=== PATIENT | female | born 1940 | race Asian ===

== ENCOUNTER 2017-01-20 06:37 | Day surgery (SDC) | payer MEDICARE, MEDICAID ==
[~2017-01-20 06:37] MED LIST: DICLOFENAC SODIUM 0.1% 2.5 ML OPHTHALMIC SOLUTION OD ONE; DICLOFENAC SODIUM 0.1% 2.5 ML OPHTHALMIC SOLUTION ONE; MOXIFLOXACIN HCL 0.5% 3 ML OPHTHALMIC SOLUTION OD ONE; MOXIFLOXACIN HCL 0.5% 3 ML OPHTHALMIC SOLUTION ONE; PHENYLEPHRINE HCL 2.5% 2 ML OPHTHALMIC SOLUTION ONE; RINGERS SOLUTION,LACTATED 500 ML IV ONE; TROPICAMIDE 1% 2 ML OPHTHALMIC SOLUTION ONE
[2017-01-20] MEDS ORDERED: TETRACAINE HCL VISCOUS 0.5% 5 ML OPHTHALMIC SOLUTION OU ONE (06:38)
[2017-01-20] MEDS ORDERED: LIDOCAINE HCL/PF 1% 2 ML VIAL IM ONE (06:38)
[2017-01-20] MEDS ORDERED: POVIDONE-IODINE 10% 15 ML SOLUTION UD TP ONE (06:38)
[2017-01-20] MEDS ORDERED: MIDAZOLAM HCL 2 MG/2 ML VIAL IVP ONE (06:38)
[2017-01-20] MEDS ORDERED: HYALURONATE SOD/CHONDROITIN SOD 0.5 ML VIAL IO ONE (06:38)
[2017-01-20] MEDS ORDERED: HYALURONATE SODIUM 12 MG/ML 0.8 ML SYRINGE IO ONE (06:38)
[2017-01-20] MEDS ORDERED: DEXAMETHASONE SOD PHOS 4 MG/ML VIAL IVP ONE (06:38)
[2017-01-20] MEDS ORDERED: FentaNYL CITRATE-PF 100 MCG/2 ML VIAL IVP ONE (06:38)
[2017-01-20] MEDS ORDERED: METO50 PO (07:03)
[2017-01-20] MEDS ORDERED: METO25 PO (07:03)
[2017-01-20] MEDS ORDERED: AMLO-511 PO (07:03)
[2017-01-20] MEDS ORDERED: ASPI-1182 PO (07:03)
[2017-01-20] MEDS ORDERED: GABA-531 PO (07:03)
[2017-01-20] MEDS ORDERED: METF500T4 PO (07:03)
[2017-01-20] MEDS: TROPICAMIDE 1% 2 ML OPHTHALMIC SOLUTION OD SCH ×2 (07:06→07:12)
[2017-01-20] MEDS: PHENYLEPHRINE HCL 2.5% 2 ML OPHTHALMIC SOLUTION OD SCH ×2 (07:06→07:12)
[2017-01-20 07:17] LABS: GLUCOSE,POINT OF CARE 101 MG/DL (70-110)
== END 2017-01-20 09:40 | disposition home or self-care (01) ==
LOC: SURGERY 06:37
PROVIDERS: ATTEND Specialist
DX: E11.36 Type 2 diabetes mellitus with diabetic cataract (principal); H25.011 Cortical age-related cataract, right eye; I11.9 Hypertensive heart disease without heart failure; I45.10 Unspecified right bundle-branch block; E78.00 Pure hypercholesterolemia, unspecified; Z90.710 Acquired absence of both cervix and uterus; Z88.8 Allergy status to other drugs, medicaments and biological substances
CPT/HCPCS: 66982; 82962; 93005; C1780; J1100; J2250; J3010; J3490 ×2; J7120

== ENCOUNTER 2017-02-24 07:56 | Day surgery (SDC) | payer MEDICARE, MEDICAID ==
[~2017-02-24] VITALS: Ht 144.8 cm; Wt 46.4 kg
[~2017-02-24 07:56] MED LIST changes: +ALEN70TA48 PO; +AMLO-512 PO; +ASPI-1182 PO; -DICLOFENAC SODIUM 0.1% 2.5 ML OPHTHALMIC SOLUTION OD ONE; -DICLOFENAC SODIUM 0.1% 2.5 ML OPHTHALMIC SOLUTION ONE; +GABA-531 PO; +LOSA50TA37 PO; +METF500T4 PO; +METO25 PO; +METO50 PO; -MOXIFLOXACIN HCL 0.5% 3 ML OPHTHALMIC SOLUTION OD ONE; -MOXIFLOXACIN HCL 0.5% 3 ML OPHTHALMIC SOLUTION ONE; -PHENYLEPHRINE HCL 2.5% 2 ML OPHTHALMIC SOLUTION ONE; -RINGERS SOLUTION,LACTATED 500 ML IV ONE; -TROPICAMIDE 1% 2 ML OPHTHALMIC SOLUTION ONE
[2017-02-24] MEDS ORDERED: FentaNYL CITRATE-PF 100 MCG/2 ML VIAL IVP ONE (07:57)
[2017-02-24] MEDS ORDERED: HYALURONATE SODIUM 12 MG/ML 0.8 ML SYRINGE IO ONE (07:57)
[2017-02-24] MEDS ORDERED: POVIDONE-IODINE 10% 15 ML SOLUTION UD TP ONE (07:57)
[2017-02-24] MEDS ORDERED: LIDOCAINE HCL/PF 1% 2 ML VIAL IM ONE (07:57)
[2017-02-24] MEDS ORDERED: DEXAMETHASONE SOD PHOS 4 MG/ML VIAL IVP ONE (07:57)
[2017-02-24] MEDS ORDERED: HYALURONATE SOD/CHONDROITIN SOD 0.5 ML VIAL IO ONE (07:57)
[2017-02-24] MEDS ORDERED: MIDAZOLAM HCL 2 MG/2 ML VIAL IVP ONE (07:57)
[2017-02-24] MEDS ORDERED: TETRACAINE HCL VISCOUS 0.5% 5 ML OPHTHALMIC SOLUTION OS ONE (07:57)
[2017-02-24] MEDS ORDERED: MOXIFLOXACIN HCL 0.5% 3 ML OPHTHALMIC SOLUTION OS ONE (08:00)
[2017-02-24] MEDS ORDERED: RINGERS SOLUTION,LACTATED 500 ML IV ONE ×2 (08:00→08:06)
[2017-02-24] MEDS ORDERED: DICLOFENAC SODIUM 0.1% 2.5 ML OPHTHALMIC SOLUTION OS ONE (08:00)
[2017-02-24] MEDS ORDERED: PHENYLEPHRINE HCL 2.5% 2 ML OPHTHALMIC SOLUTION ONE (08:07)
[2017-02-24] MEDS ORDERED: TROPICAMIDE 1% 2 ML OPHTHALMIC SOLUTION ONE (08:07)
[2017-02-24] MEDS ORDERED: DICLOFENAC SODIUM 0.1% 2.5 ML OPHTHALMIC SOLUTION ONE (08:07)
[2017-02-24] MEDS ORDERED: MOXIFLOXACIN HCL 0.5% 3 ML OPHTHALMIC SOLUTION ONE (08:07)
[2017-02-24] MEDS: TROPICAMIDE 1% 2 ML OPHTHALMIC SOLUTION OS SCH ×2 (08:26→08:31)
[2017-02-24] MEDS: PHENYLEPHRINE HCL 2.5% 2 ML OPHTHALMIC SOLUTION OS SCH ×2 (08:26→08:31)
[2017-02-24 08:32] LABS: GLUCOSE,POINT OF CARE 119 MG/DL (70-110)
== END 2017-02-24 12:00 | disposition home or self-care (01) ==
LOC: SURGERY 07:56
PROVIDERS: ATTEND Specialist
DX: E11.36 Type 2 diabetes mellitus with diabetic cataract (principal); H25.012 Cortical age-related cataract, left eye; I10 Essential (primary) hypertension; E78.00 Pure hypercholesterolemia, unspecified
CPT/HCPCS: 66984; 82962; C1780; J1100; J2250; J3010; J3490 ×2; J7120

== ENCOUNTER 2018-03-24 05:16 | Emergency (ER) | payer MEDICARE, MEDICAID ==
[~2018-03-24] VITALS: Ht 149.9 cm; Wt 72.7 kg
[~2018-03-24 05:16] MED LIST changes: +LOSA50TA25 PO; -LOSA50TA37 PO; +METF-960 PO; -METF500T4 PO
[2018-03-24 05:28] LABS: GLUCOSE,POINT OF CARE 153 MG/DL (70-110)
[2018-03-24] MEDS ORDERED: PRAV20TA4 PO (05:32)
[2018-03-24] MEDS ORDERED: LORA10TA7 PO (05:32)
[2018-03-24] MEDS ORDERED: SODIUM PHOS/SODIUM BIPHOS 133 ML ENEMA PR ONE (06:15)
[2018-03-24 07:01] VITALS: BP 140/80
== END 2018-03-24 07:02 | disposition home or self-care (01) ==
LOC: EMS 05:16
DX: K59.00 Constipation, unspecified (principal); E78.00 Pure hypercholesterolemia, unspecified; I10 Essential (primary) hypertension; E11.9 Type 2 diabetes mellitus without complications; Z90.710 Acquired absence of both cervix and uterus; Z79.84 Long term (current) use of oral hypoglycemic drugs; Z79.82 Long term (current) use of aspirin; Z79.899 Other long term (current) drug therapy; Z88.8 Allergy status to other drugs, medicaments and biological substances

== ENCOUNTER 2024-12-02 18:13 | Inpatient (IN) | payer MEDICARE, MEDICAID ==
[~2024-12-02] VITALS: Ht 147.3 cm; Wt 49.5 kg
[~2024-12-02 18:13] MED LIST changes: -ALEN70TA48 PO; +AMLO-258 PO; -AMLO-512 PO; -ASPI-1182 PO; +ASPI-1444 PO; +BENZ-227 PO; +CHOL10002 PO; +EZET10TA57 PO; -GABA-531 PO; +GUAIFDM PO; +LEVO-72 PO; +LORA10TA7 PO; +LOSA-381 PO; -LOSA50TA25 PO; +METF-1211 PO; -METF-960 PO; +METO-391 PO; -METO25 PO; -METO50 PO; +PRAV-59 PO; +SODI100067 PO
[2024-12-02 18:41] LABS: PLATELET COUNT (AUTO) 187 K/uL (150-450); RED BLOOD CELL COUNT(AUTO) 3.29 MIL/uL (4.00-5.20); RED CELL DISTRIBUTION WIDTH 12.5 % (11.5-14.5); WHITE BLOOD COUNT (AUTO) 8.3 K/uL (4.5-11.0)
[2024-12-02 18:49] LABS: CALCIUM, TOTAL 7.9 mg/dL (8.8-10.5); CREATININE 0.96 mg/dL (0.60-1.30); GLOMERULAR FILTR. RATE CALC 55 mL/min (>60); GLUCOSE,RANDOM 181 mg/dL (70-110); UREA NITROGEN, BLOOD 19 mg/dL (7-18)
[2024-12-02 18:50] LABS: SODIUM SERUM 112 mmol/L (136-145)
[2024-12-02 18:58] LABS: TROPONIN I-HIGH SENSITIVITY 36 ng/L (<51)
[2024-12-02] MEDS ORDERED: 0.9% SODIUM CHLORIDE 10 ML SYRINGE IVP PRN (20:00)
[2024-12-02] MEDS: SODIUM CHLORIDE 0.9% 250 ML IV ONE (20:07)
[2024-12-02] MEDS: FUROSEMIDE 20 MG/2 ML VIAL IVP ONE (20:08)
[2024-12-02] MEDS: CefTRIAXone 1 GM/DEXTROSE 50 ML IV ONE (20:11)
[2024-12-02 20:26] LABS: LACTIC ACID 1.2 mmol/L (0.4-2.0)
[2024-12-02 21:03] LABS: INFLUENZA TYPE A NEGATIVE FOR TYPE A (NEGATIVE); INFLUENZA TYPE B NEGATIVE FOR TYPE B (NEGATIVE)
[2024-12-02 21:14] LABS: % IRON SATURATION 20.6 % (22-44); IRON, SERUM 63.0 mcg/dL (50-175)
[2024-12-02 22:09] LABS: APPEARANCE,URINE CLEAR (CLEAR); GLUCOSE, URINE (UA) NEGATIVE (NEGATIVE); LEUKOCYTE ESTERASE ,URINE NEGATIVE (NEGATIVE); NITRATE,URINE NEGATIVE (NEGATIVE); OCCULT BLOOD,URINE MODERATE (NEGATIVE); SPECIFIC GRAVITIY, URINE 1.010 (1.003-1.030)
[2024-12-02 22:38] LABS: SQUAMOUS EPITHELIAL CELL,UR Rare /LPF (None Seen)
[2024-12-02] MEDS: ACETAMINOPHEN 325 MG TABLET PO PRN (23:04)
[2024-12-02 23:20] VITALS: PULSE 72; RESP 18; O2SAT 97
[2024-12-02] MEDS: SODIUM CHLORIDE 3% 500 ML IV ONE (23:20)
[2024-12-02] MEDS: DOXYCYCLINE HYCLATE 100 MG in DEXTROSE 5%-WATER 100 ML IV SCH (23:20)
[2024-12-02] MEDS: IPRATROPIUM BROMIDE 0.5 MG/2.5 ML NEB SOLUTION NEB ONE (23:21)
[2024-12-02] MEDS: ALBUTEROL SULFATE 2.5 MG/0.5 ML NEB SOLUTION NEB ONE (23:21)
[2024-12-02 23:25] VITALS: PULSE 72; RESP 18; O2SAT 97
[2024-12-02 23:40] VITALS: PULSE 81; RESP 18; O2SAT 99
[2024-12-02 23:53] LABS: CALCIUM, TOTAL 7.9 mg/dL (8.8-10.5); CREATININE 0.85 mg/dL (0.60-1.30); GLOMERULAR FILTR. RATE CALC > 60 mL/min (>60); GLUCOSE,RANDOM 149 mg/dL (70-110); UREA NITROGEN, BLOOD 18 mg/dL (7-18)
[2024-12-02 23:55] LABS: SODIUM SERUM 115 mmol/L (136-145)
[2024-12-03] VITALS (13 sets, daily range): BP systolic 119–140; BP diastolic 45–99; PULSE 73–98; RESP 16–22; TEMP 97.2–98.9; O2SAT 93–100
[2024-12-03] MEDS: BENZONATATE 100 MG CAPSULE PO SCH (00:03)
[2024-12-03] MEDS: HEPARIN SODIUM,PORCINE 5,000 UNITS/ML VIAL SQ SCH (00:04)
[2024-12-03 00:11] LABS: CHOL/HDL RATIO 1.7 (3.9-5.7); LACTATE DEHYDROGENASE 270.0 U/L (81-234); LDL CHOL (CALC.) 36.0 mg/dL (0-130)
[2024-12-03 05:58] LABS: PLATELET COUNT (AUTO) 179 K/uL (150-450); RED BLOOD CELL COUNT(AUTO) 2.84 MIL/uL (4.00-5.20); RED CELL DISTRIBUTION WIDTH 12.9 % (11.5-14.5); WHITE BLOOD COUNT (AUTO) 8.4 K/uL (4.5-11.0)
[2024-12-03 06:02] LABS: CALCIUM, TOTAL 7.5 mg/dL (8.8-10.5); CREATININE 0.78 mg/dL (0.60-1.30); GLOMERULAR FILTR. RATE CALC > 60 mL/min (>60); GLUCOSE,RANDOM 148 mg/dL (70-110); UREA NITROGEN, BLOOD 15 mg/dL (7-18)
[2024-12-03 06:09] LABS: SODIUM SERUM 117 mmol/L (136-145)
[2024-12-03] MEDS ORDERED: 0.9% SODIUM CHLORIDE 10 ML SYRINGE IVP ONE (07:07)
[2024-12-03] MEDS ORDERED: SODIUM CHLORIDE 0.9% 0 ML ONE (07:07)
[2024-12-03] MEDS ORDERED: IOHEXOL 300 MG/ML 100 ML VIAL ONE (07:07)
[2024-12-03] MEDS: POTASSIUM CHLORIDE 20 MEQ ER TABLET PO ONE (07:14)
[2024-12-03] MEDS: EZETIMIBE 10 MG TABLET PO SCH (08:55)
[2024-12-03] MEDS: ASPIRIN 81 MG DR TABLET PO SCH (08:55)
[2024-12-03] MEDS: LORATADINE 10 MG TABLET PO SCH (08:55)
[2024-12-03] MEDS: SODIUM CHLORIDE 1 GM TABLET PO SCH (08:57)
[2024-12-03] MEDS: ONDANSETRON HCL 4 MG/2 ML VIAL IVP PRN (09:19)
[2024-12-03] MEDS ORDERED: POTASSIUM CHL 10 MEQ/WATER 50 ML IV PRN (09:30)
[2024-12-03 11:48] LABS: CALCIUM, TOTAL 7.3 mg/dL (8.8-10.5); CREATININE 0.75 mg/dL (0.60-1.30); GLOMERULAR FILTR. RATE CALC > 60 mL/min (>60); GLUCOSE,RANDOM 144 mg/dL (70-110); UREA NITROGEN, BLOOD 14 mg/dL (7-18)
[2024-12-03] MEDS ORDERED: CALC-26 PO (11:50)
[2024-12-03] MEDS ORDERED: PRAV10TA37 PO (11:50)
[2024-12-03 11:51] LABS: GLUCOMETER DEV NAME(LOC) ICU.S6; GLUCOSE,POINT OF CARE 153 MG/DL (70-110)
[2024-12-03 11:52] LABS: SODIUM SERUM 120 mmol/L (136-145)
[2024-12-03] MEDS: INSULIN LISPRO 100 UNITS/ML SQ PRN (12:20)
[2024-12-03] MEDS: ALBUTEROL SULFATE 2.5 MG/0.5 ML NEB SOLUTION NEB SCH (15:27)
[2024-12-03] MEDS: IPRATROPIUM BROMIDE 0.5 MG/2.5 ML NEB SOLUTION NEB SCH (15:27)
[2024-12-03 17:42] LABS: CALCIUM, TOTAL 7.4 mg/dL (8.8-10.5); CREATININE 0.83 mg/dL (0.60-1.30); GLOMERULAR FILTR. RATE CALC > 60 mL/min (>60); GLUCOSE,RANDOM 112 mg/dL (70-110); UREA NITROGEN, BLOOD 14 mg/dL (7-18)
[2024-12-03 17:44] LABS: SODIUM SERUM 120 mmol/L (136-145)
[2024-12-03] MEDS: PRAVASTATIN SODIUM 40 MG TABLET PO SCH (21:34)
[2024-12-03] MEDS: CefTRIAXone 1 GM/DEXTROSE 50 ML IV SCH (21:34)
[2024-12-03] MEDS ORDERED: SODIUM CHLORIDE 0.9% 250 ML IV ONE (21:41)
[2024-12-03 22:26] LABS: GLUCOMETER DEV NAME(LOC) ICUN.6; GLUCOSE,POINT OF CARE 161 MG/DL (70-110)
[2024-12-04] VITALS (20 sets, daily range): BP systolic 110–154; BP diastolic 43–99; PULSE 68–115; RESP 17–28; TEMP 97.6–98.6; O2SAT 93–100
[2024-12-04] MEDS: SODIUM CHLORIDE 3% 500 ML IV SCH (01:00)
[2024-12-04 05:40] LABS: PLATELET COUNT (AUTO) 208 K/uL (150-450); RED BLOOD CELL COUNT(AUTO) 2.44 MIL/uL (4.00-5.20); RED CELL DISTRIBUTION WIDTH 12.8 % (11.5-14.5); WHITE BLOOD COUNT (AUTO) 10.2 K/uL (4.5-11.0)
[2024-12-04 05:47] LABS: ASPARTATE AMINOTRANSFERASE 45 U/L (15-37); CALCIUM, TOTAL 7.2 mg/dL (8.8-10.5); CREATININE 0.71 mg/dL (0.60-1.30); GLOMERULAR FILTR. RATE CALC > 60 mL/min (>60); GLUCOSE,RANDOM 91 mg/dL (70-110); PHOSPHORUS 2.4 mg/dL (2.5-4.9); TOTAL PROTEIN, SERUM 5.7 g/dL (6.4-8.2); UREA NITROGEN, BLOOD 12 mg/dL (7-18)
[2024-12-04 05:50] LABS: SODIUM SERUM 123 mmol/L (136-145)
[2024-12-04] MEDS ORDERED: BENZONATATE 100 MG CAPSULE PO PRN (06:30)
[2024-12-04] MEDS: POTASSIUM CHLORIDE 10% 40 MEQ/30 ML LIQUID UDCUP PO ONE (07:56)
[2024-12-04] MEDS: BISACODYL 5 MG EC TABLET PO ONE (07:56)
[2024-12-04] MEDS: SENNOSIDES 8.8 MG/5 ML SYRUP UDCUP PO ONE (07:57)
[2024-12-04] MEDS: PANTOPRAZOLE SODIUM 40 MG/VIAL IVP SCH (07:58)
[2024-12-04 08:47] LABS: % IRON SATURATION 12.9 % (22-44); IRON, SERUM 30.0 mcg/dL (50-175)
[2024-12-04] MEDS: GuaiFENesin/D-METHORPHAN [SUGAR-FREE] 200-20MG/10 ML SYRUP UDCUP PO PRN (09:06)
[2024-12-04 10:06] LABS: GLUCOMETER DEV NAME(LOC) ICUN.6; GLUCOSE,POINT OF CARE 115 MG/DL (70-110)
[2024-12-04 11:41] LABS: CALCIUM, TOTAL 7.8 mg/dL (8.8-10.5); CREATININE 0.80 mg/dL (0.60-1.30); GLOMERULAR FILTR. RATE CALC > 60 mL/min (>60); GLUCOSE,RANDOM 204 mg/dL (70-110); UREA NITROGEN, BLOOD 11 mg/dL (7-18)
[2024-12-04 11:46] LABS: SODIUM SERUM 118 mmol/L (136-145)
[2024-12-04] MEDS: SODIUM PHOS,M-BASIC-D-BASIC 30 MMOL in DEXTROSE 5%-WATER 250 ML IV ONE (12:25)
[2024-12-04 16:48] LABS: CALCIUM, TOTAL 7.2 mg/dL (8.8-10.5); CREATININE 0.81 mg/dL (0.60-1.30); GLOMERULAR FILTR. RATE CALC > 60 mL/min (>60); GLUCOSE,RANDOM 255 mg/dL (70-110); UREA NITROGEN, BLOOD 12 mg/dL (7-18)
[2024-12-04 16:49] LABS: SODIUM SERUM 120 mmol/L (136-145)
[2024-12-04] MEDS: HEPARIN SODIUM,PORCINE 5,000 UNITS/ML VIAL SQ SCH (20:04)
[2024-12-04 20:26] LABS: GLUCOMETER DEV NAME(LOC) ICUN.6; GLUCOSE,POINT OF CARE 276 MG/DL (70-110)
[2024-12-04 21:32] LABS: CALCIUM, TOTAL 7.2 mg/dL (8.8-10.5); CREATININE 0.85 mg/dL (0.60-1.30); GLOMERULAR FILTR. RATE CALC > 60 mL/min (>60); GLUCOSE,RANDOM 210 mg/dL (70-110); UREA NITROGEN, BLOOD 12 mg/dL (7-18)
[2024-12-04 21:35] LABS: SODIUM SERUM 119 mmol/L (136-145)
[2024-12-05] VITALS (23 sets, daily range): BP systolic 124–162; BP diastolic 53–113; PULSE 89–117; RESP 15–26; TEMP 97.1–98.9; O2SAT 92–99
[2024-12-05] MEDS: PIPERACILLIN/TAZO 3.375 GM/D5W 50 ML IV SCH (01:31)
[2024-12-05 06:29] LABS: CALCIUM, TOTAL 7.7 mg/dL (8.8-10.5); CREATININE 0.88 mg/dL (0.60-1.30); GLOMERULAR FILTR. RATE CALC > 60 mL/min (>60); GLUCOSE,RANDOM 161 mg/dL (70-110); UREA NITROGEN, BLOOD 13 mg/dL (7-18)
[2024-12-05 06:31] LABS: SODIUM SERUM 124 mmol/L (136-145)
[2024-12-05 06:34] LABS: PHOSPHORUS 2.5 mg/dL (2.5-4.9)
[2024-12-05 06:41] LABS: PLATELET COUNT (AUTO) 249 K/uL (150-450); RED BLOOD CELL COUNT(AUTO) 2.23 MIL/uL (4.00-5.20); RED CELL DISTRIBUTION WIDTH 13.0 % (11.5-14.5); WHITE BLOOD COUNT (AUTO) 13.1 K/uL (4.5-11.0)
[2024-12-05 08:18] LABS: BAND NEUTROPHILS % (MANUAL) 1 % (0-5); LYMPHOCYTES % (MANUAL) 9 % (22-44); METAMYELOCYTES % 6 % (0-0); MONOCYTES % (MANUAL) 4 % (2-9); SEGMENTED NEUTROPHILS % 80 % (40-70)
[2024-12-05 08:20] LABS: GLUCOMETER DEV NAME(LOC) ICUN.6; GLUCOSE,POINT OF CARE 232 MG/DL (70-110)
[2024-12-05 08:20] LABS: RBC MORPHOLOGY COMMENT NORMAL RBC MORPH
[2024-12-05 08:41] LABS: GLUCOMETER DEV NAME(LOC) ICU.S7; GLUCOSE,POINT OF CARE 168 MG/DL (70-110)
[2024-12-05] MEDS: LACTULOSE 20 GM/30 ML SOLUTION UDCUP PO ONE (08:58)
[2024-12-05] MEDS: POLYETHYLENE GLYCOL 3350 17 GM PACKET PO ONE (08:58)
[2024-12-05] MEDS: SODIUM CHLORIDE 1 GM TABLET PO SCH (08:59)
[2024-12-05] MEDS: MAGNESIUM HYDROXIDE SUSPENSION 30 ML UDCUP PO ONE (08:59)
[2024-12-05] MEDS: INSULIN GLARGINE,HUM.REC.ANLOG 100 UNITS/ML SQ SCH (09:05)
[2024-12-05] MEDS ORDERED: SODIUM CHLORIDE 0.9% 100 ML ONE (09:36)
[2024-12-05] MEDS ORDERED: IOHEXOL 350 MG/ML 100 ML VIAL ONE (09:36)
[2024-12-05] MEDS ORDERED: SODIUM CHLORIDE 0.9% 1,000 ML ONE (10:40)
[2024-12-05 16:20] LABS: GLUCOMETER DEV NAME(LOC) ICUN.6; GLUCOSE,POINT OF CARE 195 MG/DL (70-110)
[2024-12-05 18:50] LABS: INFLUENZA A-RTPCR,COMBO NEGATIVE (NEGATIVE); INFLUENZA B-RTPCR,COMBO NEGATIVE (NEGATIVE); RESPIRATORY SYNCYTIAL VRS-PCR NEGATIVE (NEGATIVE); SARS COVID19 RTPCR, COMBO NEGATIVE (NEGATIVE)
[2024-12-05 19:41] LABS: GLUCOMETER DEV NAME(LOC) ICU.S7; GLUCOSE,POINT OF CARE 156 MG/DL (70-110)
[2024-12-05] MEDS ORDERED: SODIUM CHLORIDE 0.9% 250 ML IV ONE ×2 (20:07→23:42)
[2024-12-05] MEDS: PANTOPRAZOLE SODIUM 40 MG/VIAL IVP ONE (21:58)
[2024-12-05] MEDS: PANTOPRAZOLE SODIUM 80 MG in SODIUM CHLORIDE 0.9% 100 ML IV SCH (22:09)
[2024-12-05 23:31] LABS: GLUCOMETER DEV NAME(LOC) ICU.S7; GLUCOSE,POINT OF CARE 102 MG/DL (70-110)
[2024-12-06] VITALS (19 sets, daily range): BP systolic 124–158; BP diastolic 55–77; PULSE 80–117; RESP 16–24; TEMP 97.5–98.2; O2SAT 93–100
[2024-12-06 06:42] LABS: PLATELET COUNT (AUTO) 277 K/uL (150-450); RED BLOOD CELL COUNT(AUTO) 2.82 MIL/uL (4.00-5.20); RED CELL DISTRIBUTION WIDTH 13.3 % (11.5-14.5); WHITE BLOOD COUNT (AUTO) 11.8 K/uL (4.5-11.0)
[2024-12-06 06:59] LABS: ASPARTATE AMINOTRANSFERASE 34 U/L (15-37); CALCIUM, TOTAL 7.6 mg/dL (8.8-10.5); CREATININE 0.82 mg/dL (0.60-1.30); GLOMERULAR FILTR. RATE CALC > 60 mL/min (>60); GLUCOSE,RANDOM 117 mg/dL (70-110); SODIUM SERUM 131 mmol/L (136-145); TOTAL PROTEIN, SERUM 5.9 g/dL (6.4-8.2); UREA NITROGEN, BLOOD 12 mg/dL (7-18)
[2024-12-06 08:04] LABS: BAND NEUTROPHILS % (MANUAL) 2 % (0-5); LYMPHOCYTES % (MANUAL) 9 % (22-44); MONOCYTES % (MANUAL) 7 % (2-9); NUCLEATED RED BLOOD CELLS 2.0 % (0.0-0.0); RBC MORPHOLOGY COMMENT NORMAL RBC MORPH; SEGMENTED NEUTROPHILS % 82 % (40-70)
[2024-12-06] MEDS: POTASSIUM CHLORIDE 20 MEQ ER TABLET PO PRN (08:45)
[2024-12-06] MEDS ORDERED: FUROSEMIDE 20 MG/2 ML VIAL IVP SCH (14:15)
[2024-12-06] MEDS: DOXYCYCLINE HYCLATE 100 MG TABLET PO SCH (14:25)
[2024-12-07] VITALS (18 sets, daily range): BP systolic 127–154; BP diastolic 51–101; PULSE 95–112; RESP 17–20; TEMP 97.3–98.6; O2SAT 95–100
[2024-12-07 05:55] LABS: GLUCOMETER DEV NAME(LOC) 5S.1D; GLUCOSE,POINT OF CARE 149 MG/DL (70-110)
[2024-12-07 05:56] LABS: GLUCOMETER DEV NAME(LOC) 5S.1D; GLUCOSE,POINT OF CARE 125 MG/DL (70-110)
[2024-12-07 05:56] LABS: GLUCOMETER DEV NAME(LOC) 5S.1D; GLUCOSE,POINT OF CARE 111 MG/DL (70-110)
[2024-12-07 06:06] LABS: GLUCOMETER DEV NAME(LOC) 5S.2D; GLUCOSE,POINT OF CARE 136 MG/DL (70-110)
[2024-12-07 06:06] LABS: GLUCOMETER DEV NAME(LOC) 5S.2D; GLUCOSE,POINT OF CARE 109 MG/DL (70-110)
[2024-12-07 06:56] LABS: PLATELET COUNT (AUTO) 320 K/uL (150-450); RED BLOOD CELL COUNT(AUTO) 2.95 MIL/uL (4.00-5.20); RED CELL DISTRIBUTION WIDTH 13.4 % (11.5-14.5); WHITE BLOOD COUNT (AUTO) 11.9 K/uL (4.5-11.0)
[2024-12-07 07:11] LABS: ASPARTATE AMINOTRANSFERASE 31.0 U/L (15-37); CALCIUM, TOTAL 7.7 mg/dL (8.8-10.5); CREATININE 0.93 mg/dL (0.60-1.30); GLOMERULAR FILTR. RATE CALC 57.0 mL/min (>60); GLUCOSE,RANDOM 93.0 mg/dL (70-110); SODIUM SERUM 133.0 mmol/L (136-145); TOTAL PROTEIN, SERUM 6.0 g/dL (6.4-8.2); UREA NITROGEN, BLOOD 10.0 mg/dL (7-18)
[2024-12-07 09:41] LABS: GLUCOMETER DEV NAME(LOC) 5S.2D; GLUCOSE,POINT OF CARE 193 MG/DL (70-110)
[2024-12-07] MEDS ORDERED: SODIUM CHLORIDE 3% 15 ML NEB SOLUTION NEB ONE ×2 (11:34→12:25)
[2024-12-07 13:07] LABS: LEGIONELLA PNEUMO AG URINE Negative (Negative); S PNEUMO SOURCE Urine; STREP PNEUMONIAE AG URINE Negative (Negative)
[2024-12-07] MEDS ORDERED: SODIUM CHLORIDE 0.9% 500 ML IV ONE (14:11)
[2024-12-07 21:56] LABS: GLUCOMETER DEV NAME(LOC) 5S.2D; GLUCOSE,POINT OF CARE 140 MG/DL (70-110)
[2024-12-07 21:56] LABS: GLUCOMETER DEV NAME(LOC) 5S.1D; GLUCOSE,POINT OF CARE 139 MG/DL (70-110)
[2024-12-07 22:46] LABS: GLUCOMETER DEV NAME(LOC) 5S.2D; GLUCOSE,POINT OF CARE 206 MG/DL (70-110)
[2024-12-08] VITALS (13 sets, daily range): BP systolic 112–148; BP diastolic 58–66; PULSE 93–108; RESP 16–30; TEMP 97.7–98.3; O2SAT 95–99
[2024-12-08 06:10] LABS: GLUCOMETER DEV NAME(LOC) 5S.2D; GLUCOSE,POINT OF CARE 79 MG/DL (70-110)
[2024-12-08 06:30] LABS: PLATELET COUNT (AUTO) 321 K/uL (150-450); RED BLOOD CELL COUNT(AUTO) 2.97 MIL/uL (4.00-5.20); RED CELL DISTRIBUTION WIDTH 13.2 % (11.5-14.5); WHITE BLOOD COUNT (AUTO) 13.7 K/uL (4.5-11.0)
[2024-12-08 07:50] LABS: CALCIUM, TOTAL 8.3 mg/dL (8.8-10.5); CREATININE 0.92 mg/dL (0.60-1.30); GLOMERULAR FILTR. RATE CALC 58.0 mL/min (>60); GLUCOSE,RANDOM 77.0 mg/dL (70-110); SODIUM SERUM 130.0 mmol/L (136-145); UREA NITROGEN, BLOOD 16.0 mg/dL (7-18)
[2024-12-08] MEDS: PANTOPRAZOLE SODIUM 40 MG DR TABLET PO SCH (08:47)
[2024-12-08 09:41] LABS: GLUCOMETER DEV NAME(LOC) 5S.1D; GLUCOSE,POINT OF CARE 218 MG/DL (70-110)
[2024-12-08 18:30] LABS: GLUCOMETER DEV NAME(LOC) 5S.1D; GLUCOSE,POINT OF CARE 135 MG/DL (70-110)
[2024-12-08 18:35] LABS: GLUCOMETER DEV NAME(LOC) 5S.2D; GLUCOSE,POINT OF CARE 151 MG/DL (70-110)
[2024-12-08] MEDS: DEXTROSE 50%-WATER 25 GM/50 ML SYRINGE IVP PRN (21:43)
[2024-12-08] MEDS ORDERED: SODIUM CHLORIDE 3% 15 ML NEB SOLUTION NEB ONE (21:54)
[2024-12-08 21:56] LABS: GLUCOMETER DEV NAME(LOC) 5S.2D; GLUCOSE,POINT OF CARE 46 MG/DL (70-110)
[2024-12-08] MEDS ORDERED: SODIUM CHLORIDE 0.9% 250 ML IV ONE (22:37)
[2024-12-08] MEDS: PIPERACILLIN SODIUM/TAZOBACTAM 2.25 GM in DEXTROSE 5%-WATER 50 ML IV SCH (22:38)
[2024-12-09] VITALS (12 sets, daily range): BP systolic 119–141; BP diastolic 56–75; PULSE 87–106; RESP 16–18; TEMP 97.7–99.3; O2SAT 94–100
[2024-12-09 02:05] LABS: GLUCOMETER DEV NAME(LOC) 5S.2D; GLUCOSE,POINT OF CARE 261 MG/DL (70-110)
[2024-12-09 05:53] LABS: PLATELET COUNT (AUTO) 309 K/uL (150-450); RED BLOOD CELL COUNT(AUTO) 2.72 MIL/uL (4.00-5.20); RED CELL DISTRIBUTION WIDTH 13.5 % (11.5-14.5); WHITE BLOOD COUNT (AUTO) 10.9 K/uL (4.5-11.0)
[2024-12-09 07:20] LABS: GLUCOMETER DEV NAME(LOC) 5S.1D; GLUCOSE,POINT OF CARE 128 MG/DL (70-110)
[2024-12-09] MEDS ORDERED: BENZ-227 PO (07:24)
[2024-12-09] MEDS ORDERED: AMLO2.5T96 PO (07:24)
[2024-12-09] MEDS ORDERED: SODI100067 PO ×2 (07:24→14:09)
[2024-12-09] MEDS ORDERED: PANT-31 PO (07:24)
[2024-12-09] MEDS ORDERED: [UNRECOGNIZED DRUG - OTHER] PO (07:24)
[2024-12-09] MEDS ORDERED: SODIUM CHLORIDE 0.9% 250 ML IV ONE (10:01)
[2024-12-09 13:00] LABS: GLUCOMETER DEV NAME(LOC) 6S.2; GLUCOSE,POINT OF CARE 166 MG/DL (70-110)
[2024-12-09] MEDS ORDERED: AMOX-457 PO (14:02)
[2024-12-09] MEDS ORDERED: DOXY-354 PO (14:08)
[2024-12-09 17:35] LABS: GLUCOMETER DEV NAME(LOC) 6N.2C; GLUCOSE,POINT OF CARE 159 MG/DL (70-110)
[2024-12-09 21:51] LABS: GLUCOMETER DEV NAME(LOC) 6S.1D; GLUCOSE,POINT OF CARE 228 MG/DL (70-110)
[2024-12-10] VITALS (10 sets, daily range): BP systolic 121–131; BP diastolic 56–59; PULSE 85–101; RESP 16–18; TEMP 97.3–97.9; O2SAT 94–99
[2024-12-10 06:25] LABS: GLUCOMETER DEV NAME(LOC) 6N.2C; GLUCOSE,POINT OF CARE 142 MG/DL (70-110)
[2024-12-10 07:43] LABS: CALCIUM, TOTAL 9.1 mg/dL (8.8-10.5); CREATININE 0.77 mg/dL (0.60-1.30); GLOMERULAR FILTR. RATE CALC > 60 mL/min (>60); GLUCOSE,RANDOM 123 mg/dL (70-110); SODIUM SERUM 133 mmol/L (136-145); UREA NITROGEN, BLOOD 11 mg/dL (7-18)
[2024-12-10 12:15] LABS: GLUCOMETER DEV NAME(LOC) 6N.2C; GLUCOSE,POINT OF CARE 157 MG/DL (70-110)
[2024-12-10 13:31] LABS: GLUCOMETER DEV NAME(LOC) 6S.1D; GLUCOSE,POINT OF CARE 159 MG/DL (70-110)
[2024-12-10 17:40] LABS: GLUCOMETER DEV NAME(LOC) 6N.2C; GLUCOSE,POINT OF CARE 154 MG/DL (70-110)
[2024-12-11] VITALS (9 sets, daily range): BP systolic 142–149; BP diastolic 57–62; PULSE 90–106; RESP 16–19; TEMP 97.3–98.1; O2SAT 96–99
[2024-12-11 00:55] LABS: GLUCOMETER DEV NAME(LOC) 6S.2; GLUCOSE,POINT OF CARE 159 MG/DL (70-110)
[2024-12-11] MEDS ORDERED: SODIUM CHLORIDE 0.9% 250 ML IV ONE (04:46)
[2024-12-11 07:55] LABS: GLUCOMETER DEV NAME(LOC) 6S.1D; GLUCOSE,POINT OF CARE 139 MG/DL (70-110)
[2024-12-12 05:30] LABS: GLUCOMETER DEV NAME(LOC) 6N.2C; GLUCOSE,POINT OF CARE 141 MG/DL (70-110)
== END 2024-12-11 17:26 | disposition home health service (06) | DRG 643 ==
LOC: EMS 18:22 → EDH 20:48 → ICU 12-03 02:34 → 5S 12-05 23:10 → 6S 12-09 06:35
PROVIDERS: ADMIT Internal Medicine; ATTEND Internal Medicine
PROC: 30233N1 Transfusion of Nonautologous Red Blood Cells into Peripheral Vein, Percutaneous Approach (ICD-10-PCS; principal; 2024-12-05)
PROC: 05HC33Z Insertion of Infusion Device into Left Basilic Vein, Percutaneous Approach (ICD-10-PCS; 2024-12-05)
PROC: B54NZZA Ultrasonography of Left Upper Extremity Veins, Guidance (ICD-10-PCS; 2024-12-05)
DX: E22.2 Syndrome of inappropriate secretion of antidiuretic hormone (principal); G93.41 Metabolic encephalopathy; J69.0 Pneumonitis due to inhalation of food and vomit; J44.1 Chronic obstructive pulmonary disease with (acute) exacerbation; K92.2 Gastrointestinal hemorrhage, unspecified; I50.30 Unspecified diastolic (congestive) heart failure; E87.20 Acidosis, unspecified; Z20.822 Contact with and (suspected) exposure to COVID-19; W18.39XA Other fall on same level, initial encounter; I11.0 Hypertensive heart disease with heart failure; E78.00 Pure hypercholesterolemia, unspecified; E87.6 Hypokalemia; T14.8XXA Other injury of unspecified body region, initial encounter; E11.65 Type 2 diabetes mellitus with hyperglycemia; D64.9 Anemia, unspecified; Z79.4 Long term (current) use of insulin; Z90.710 Acquired absence of both cervix and uterus; Z79.899 Other long term (current) drug therapy; Y93.89 Activity, other specified; Y92.89 Other specified places as the place of occurrence of the external cause; Y99.8 Other external cause status; Z88.8 Allergy status to other drugs, medicaments and biological substances
CPT/HCPCS: 36245; 36569; 51702; 70450; 71045; 71250; 72192; 74150; 74177; 76937; 80048; 80053; 80061; 81001; 82271; 82533; 82962; 83540; 83550; 83605; 83615; 83735; 83880; 83930; 83935; 84100; 84132; 84133; 84145; 84295; 84300; 84443; 84484; 84540; 85014; 85018; 85025; 85045; 85610; 86850; 86900; 86901; 86923; 87040; 87070; 87081; 87205; 87449; 87637; 87804; 87899; 93005; 93306; 94640; 96365; 96375; 97110; 97116; 97163; 97530; 99291; J0696; J1644; J1815; J1938; J2405; J2470; J2543; J2919; J3490; J7030; J7040; J7050; J7060; P9016; Q9967; 36415-L1; 36415-TC; J7613; X7700